=== PATIENT | female | born 1965 ===

== ENCOUNTER 2022-03-04 09:10 | Day surgery (SDC) | payer OTHER ==
[~2022-03-04] VITALS: Ht 170.2 cm; Wt 103.0 kg
[~2022-03-04 09:10] MED LIST: COZAAR100 MG PO; SYNTHROID88 MCG PO
== END 2022-03-04 17:05 | disposition home or self-care (01) ==
LOC: CIR.AMB 09:10
PROVIDERS: ATTEND Obstetrics & Gynecology
DX: N84.0 Polyp of corpus uteri (principal); Z20.822 Contact with and (suspected) exposure to COVID-19; I10 Essential (primary) hypertension; E03.9 Hypothyroidism, unspecified; J45.909 Unspecified asthma, uncomplicated; E66.9 Obesity, unspecified